=== PATIENT | male | born 1965 | race Caucasian/White ===

== ENCOUNTER 2017-07-26 12:11 | Emergency (ER) | payer OTHER ==
[2017-07-26 12:18] VITALS: RESP 18
[2017-07-26] MEDS ORDERED: Lidocaine 2% Inj (20ml) INFIL ONE (12:57)
[2017-07-26] MEDS ORDERED: Lidocaine 2% Inj (20ml) ONE (13:05)
[2017-07-26] MEDS ORDERED: Morphine 4 MG/ML VIAL ONE ×2 (13:21→14:32)
--- NOTE | 2017-07-26 13:34 | C.PDOC ---
History Of Present Illness 52 year old male with no significant PMHx presents to the ED accompanied by coworker for evaluation of laceration to his left index finger and thumb. Patient reports that while at work he was using a paper box cutter when he suffered the injury. While in the ED patient's hands was placed on saline solution. Patient denies dizziness, nausea, vomit, weakness, numbness. Time Seen by Provider: 07/26/17 12:54 Chief Complaint (Nursing): Finger,Hand,&Wrist History Per: Patient History/Exam Limitations: no limitations Onset/Duration Of Symptoms: Hrs Current Symptoms Are (Timing): Still Present Quality: "Pain" Severity: Moderate Exacerbating Factor(s): Movement Recent travel outside of the [place]: No Additional History Per: Patient Past Medical History Reviewed: Historical Data, Nursing Documentation, Vital Signs Vital Signs: Last Vital Signs Temp 98.2 F 07/26/17 15:41 Pulse 68 07/26/17 15:41 Resp 18 07/26/17 15:41 BP 135/82 07/26/17 15:41 Pulse Ox 98 07/26/17 15:41 - Medical History PMH: No Chronic Diseases Surgical History: No Surg Hx - [facility] Procedures INJECT/INFUSE NEC (07/20/14) Family History: States: Unknown Family Hx - Social History Hx Alcohol Use: No Hx Substance Use: No - Immunization History Hx Tetanus Toxoid Vaccination: Yes Hx Influenza Vaccination: No Hx Pneumococcal Vaccination: No Review Of Systems Constitutional: Negative for: Fever, Chills Cardiovascular: Negative for: Chest Pain Respiratory: Negative for: Shortness of Breath Gastrointestinal: Negative for: Nausea, Abdominal Pain Musculoskeletal: Positive for: Hand Pain Skin: Positive for: Other (Laceration). Negative for: Rash Neurological: Negative for: Weakness, Numbness, Headache, Dizziness Physical Exam - Physical Exam Appears: Non-toxic, No Acute Distress Skin: Normal Color, Warm, Dry, Other (avulsion to left thumb and left index finger) Head: Atraumatic, Normacephalic Eye(s): bilateral: Normal Inspection Nose: No Discharge Oral Mucosa: Moist Neck: Normal ROM, Supple Chest: Symmetrical Cardiovascular: Rhythm Regular, No Murmur Extremity: Normal ROM, No Tenderness, Capillary Refill (< 2 seconds), No Swelling, Other (left thumb avulsion to medial aspect extending to half of the nailbed. Avulsion went down to the bone. Left index finger avulsion to left distal aspect which also went down to the bone.) Pulses: Left Radial: Normal, Right Radial: Normal Neurological/Psych: Oriented x3, Normal Speech, Normal Motor, Normal Sensation Gait: Steady ED Course And Treatment O2 Sat by Pulse Oximetry: 100 (ON RA) Pulse Ox Interpretation: Normal Laceration - Laceration Repair No standard instances Wound Length (In cm): 3.5 Description Of Wound: Linear Wound Cleansed With: Betadine, Sterile Saline Anesthesia: Lidocaine 2% Wound Examination: Irrigated With Saline, No FB With Wound Exploration, No Tendon Injury With Wound Exploration Wound Debridement/Revision: Wound Debrided Wound Closure: Suture (x12) Suture Technique And Material Used: Nylon (3-o and 4-o) Wound Complexity: Simple Medical Decision Making Medical Decision Making: Impression: left thumb and index finger avulsion Plan: * Ancef 1,000 mg IVPB * Lidocaine 2% * Morphine 6 mg IM * Morphine 4 mg IVP Index finger was washed with saline and betadine. Index finger avulsion removed part of the tissue, so xeroform gauze was placed in it with no suture. Thumb avulsion was cleaned, carefully closed and joined back again with the nail. Avulsion was sutured with 3-o and 4-o nylon and 12 stitches were done. Length of the wound was 3.5 cm. Disposition Counseled Patient/Family Regarding: Diagnosis, Need For Followup, Rx Given - Disposition Referrals: [facility] at [facility] [Outside] Disposition: HOME/ ROUTINE Disposition Time: 15:25 Condition: STABLE Additional Instructions: Regrese a la viraj de emergencia el avinash jueves . regrese enseguida si se ve rojp o inflamado el brazo. Prescriptions: Cephalexin [cephalexin] 500 mg PO QID #40 cap Forms: [facility] (Russian), Work Excuse - POA Present On Arrival: None - Clinical Impression Clinical Impression: Laceration of left index finger with damage to nail - Scribe Statement The provider has reviewed the documentation as recorded by the Scribe Tyler Phipps All medical record entries made by the Scribe were at my direction and personally dictated by me. I have reviewed the chart and agree that the record accurately reflects my personal performance of the history, physical exam, medical decision making, and the department course for this patient. I have also personally directed, reviewed, and agree with the discharge instructions and disposition.
[2017-07-26] MEDS ORDERED: ceFAZolin 1 gm FROZEN Premix 1 GM/50 ML ML IVPB ONE (14:32)
[2017-07-26 15:42] VITALS: BP 135/82; PULSE 68; TEMP 98.2
[2017-07-26 15:53] VITALS: O2SAT 100
== END 2017-07-26 15:40 | disposition home or self-care (01) ==
LOC: C.ER 12:11
DX: S61.211A Laceration without foreign body of left index finger without damage to nail, initial encounter (principal); S61.112A Laceration without foreign body of left thumb with damage to nail, initial encounter; W45.8XXA Other foreign body or object entering through skin, initial encounter; Y92.89 Other specified places as the place of occurrence of the external cause; Y99.0 Civilian activity done for income or pay
CPT/HCPCS: 12002; 96365; 96375; 99284; J0690; J2270

== ENCOUNTER 2017-07-29 09:54 | Emergency (ER) | payer OTHER, SELFPAY ==
[2017-07-29 10:08] VITALS: BP 126/84; PULSE 84; RESP 20; TEMP 98.3; O2SAT 98
--- NOTE | 2017-07-29 11:07 | C.PDOC ---
History Of Present Illness 52 y/o male presents to the ER for a wound check to the left thumb and left index finger. Patient states that he cut his fingers with a box stapler while he was at work and he was seen in the ER on 07/26/17. He had an avulsion to the left thumb with Xeroform gauze placed. He also had an avulsion to the pulp of the left index finger which was sutured with 3-0 and 4-0 Nylon. Patient notes that he has pain in the site of the wound. Patient denies having fever,chills, and other complaints. Time Seen by Provider: 07/29/17 10:48 Chief Complaint (Nursing): Wound Check History Per: Patient History/Exam Limitations: no limitations Past Medical History Reviewed: Historical Data, Nursing Documentation, Vital Signs Vital Signs: Last Vital Signs Temp 98.3 F 07/29/17 10:06 Pulse 84 07/29/17 10:06 Resp 20 07/29/17 10:06 BP 126/84 07/29/17 10:06 Pulse Ox 98 07/29/17 16:03 - Medical History PMH: No Chronic Diseases Other Surgeries: Hx of surgeries - [employer] Procedures INJECT/INFUSE NEC (07/20/14) Family History: States: No Known Family Hx - Social History Hx Alcohol Use: Yes Hx Substance Use: No - Immunization History Hx Tetanus Toxoid Vaccination: Yes Hx Influenza Vaccination: No Hx Pneumococcal Vaccination: No Review Of Systems Except As Marked, All Systems Reviewed And Found Negative. Constitutional: Negative for: Fever, Chills Musculoskeletal: Positive for: Hand Pain (left thumb and left index finger) Physical Exam - Physical Exam Appears: Non-toxic, No Acute Distress Skin: Normal Color, Warm, Other (healing wound with sutures to left thumb, open avulsion to left index finger) Head: Atraumatic, Normacephalic Eye(s): bilateral: Normal Inspection Nose: Normal Oral Mucosa: Moist Neck: Supple Chest: Symmetrical Neurological/Psych: Oriented x3, Normal Speech ED Course And Treatment O2 Sat by Pulse Oximetry: 98 (RA) Pulse Ox Interpretation: Normal Medical Decision Making Medical Decision Making: Patient has a healing wound to the left thumb with an open avulsion to the index area. Patient has been discharged and told to return to ER in 4 days. Disposition Counseled Patient/Family Regarding: Diagnosis - Disposition Referrals: [facility] at [facility] [Outside] Disposition: HOME/ ROUTINE Disposition Time: 11:05 Condition: STABLE Additional Instructions: Mantenga los dedos limpios y seco. Regrese el avinash lunes pare evaluar la herida. Instructions: Wound Care (DC) Forms: Gen Discharge Inst Syrian, [facility] (Syrian), Work Excuse - POA Present On Arrival: None - Clinical Impression Clinical Impression: Visit for wound care - Scribe Statement The provider has reviewed the documentation as recorded by the Quintonibe Yara Sheikh Provider Attestation: All medical record entries made by the Scribe were at my direction and personally dictated by me. I have reviewed the chart and agree that the record accurately reflects my personal performance of the history, physical exam, medical decision making, and the department course for this patient. I have also personally directed, reviewed, and agree with the discharge instructions and disposition.
== END 2017-07-29 11:12 | disposition home or self-care (01) ==
LOC: C.ER 09:54
DX: Z51.89 Encounter for other specified aftercare (principal)

== ENCOUNTER 2017-08-02 09:56 | Emergency (ER) | payer OTHER ==
[2017-08-02 10:08] VITALS: BMI 26.6
[2017-08-02 10:09] VITALS: RESP 18
--- NOTE | 2017-08-02 11:57 | C.PDOC ---
History Of Present Illness <Blossom Nolasco - Last Filed: 08/02/17 11:56> <Siobhan Mahoney DO - Last Filed: 08/02/17 13:19> Patient is a 52 year old male who presents to the ED for wound check. 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 Lacerations were repaired on 07/26/17 and patient returned to the ED on 07/29/17 for wound check. Patient was instructed at that time to return to the ED in 4 days for repeat wound check. Patient denies bleeding of wounds or pain at home. Patient denies purulent discharge. Patient denies fever or chills. Patient states he is taking the antibiotic prescribed on initial ED visit. (Siobhan Mahoney DO) <Blossom Nolasco - Last Filed: 08/02/17 11:56> History Per: Patient History/Exam Limitations: no limitations Onset/Duration Of Symptoms: Days Ago, Laceration Current Symptoms Are (Timing): Better Location Of Injury: Left: Hand Quality Of Symptoms: denies: Painful, Swollen, Draining Severity: Mild Pain Scale Rating Of: 1 Additional History Per: Prior Records <Siobhan Mahoney DO - Last Filed: 08/02/17 13:19> Time Seen by Provider: 08/02/17 11:06 Chief Complaint (Nursing): Wound Check Past Medical History Family History: States: Unknown Family Hx - Social History Hx Alcohol Use: Yes Hx Substance Use: No - Immunization History Hx Tetanus Toxoid Vaccination: Yes Hx Influenza Vaccination: No Hx Pneumococcal Vaccination: No <Blossom Nolasco - Last Filed: 08/02/17 11:56> Vital Signs: Last Vital Signs Temp 98.4 F 08/02/17 12:01 Pulse 84 08/02/17 12:01 Resp 18 08/02/17 12:01 BP 146/82 08/02/17 12:01 Pulse Ox 98 08/02/17 12:01 - [facility] Procedures INJECT/INFUSE NEC (07/20/14) Review Of Systems Constitutional: Negative for: Fever, Chills Eyes: Negative for: Pain ENT: Negative for: Ear Pain Cardiovascular: Negative for: Chest Pain Respiratory: Negative for: Cough Gastrointestinal: Negative for: Nausea, Vomiting Genitourinary: Negative for: Dysuria Skin: Positive for: Other (denies discharge from wound) Neurological: Negative for: Weakness, Dizziness <Siobhan Mahoney DO - Last Filed: 08/02/17 13:19> Physical Exam - Physical Exam Appears: Well, Non-toxic, No Acute Distress Skin: Warm, Dry, Other (left thumb with sutures intact, no bleeding, no purulence noted. left index finger non purulent, nontender on palpation) Eye(s): bilateral: EOMI Neck: Normal ROM Chest: Symmetrical Cardiovascular: Rhythm Regular Respiratory: Normal Breath Sounds Gastrointestinal/Abdominal: Bowel Sounds, Soft, No Tenderness Extremity: No Tenderness Neurological/Psych: Oriented x3, Normal Speech <Siobhan Mahoney DO - Last Filed: 08/02/17 13:19> ED Course And Treatment O2 Sat by Pulse Oximetry: 97 <Blossom Nolasco - Last Filed: 08/02/17 11:56> Progress Note: Wounds irrigated with sterile saline and cleansed with betadine. Bacitracin applied and wounds covered with clean gauze. Patient instructed to return to ED in 3 days for wound check. <Siobhan Mahoney DO - Last Filed: 08/02/17 13:19> Disposition Counseled Patient/Family Regarding: Studies Performed, Diagnosis, Need For Followup - Disposition Disposition Time: 12:00 <Blossom Nloasco - Last Filed: 08/02/17 11:56> Counseled Patient/Family Regarding: Need For Followup <Siobhan Mahoney DO - Last Filed: 08/02/17 13:19> - Disposition Referrals: [facility] at [facility] [Outside] Disposition: HOME/ ROUTINE Condition: STABLE Additional Instructions: RETURN TO EMERGENCY ROOM IN 3 DAYS FOR WOUND CHECK CONTINUE YOUR ANTIBIOTICS RETURN TO EMERGENCY ROOM SOONER IF YOU HAVE ANY CONCERNING SYMPTOMS VUELVA A LA LA DE EMERGENCIAS EN 3 WINTERS PARA CHEQUEO DE HERIDAS CONTINUE CON LAISHA ANTIBITICOS REGRESE AL CUARTO DE URGENCIAS MS PRONTO SI TIENE ALGN SNTOMA CONCRETO Instructions: Wound Care (DC) Forms: [employer] (Sri Lankan) Print Language: DANISH - Clinical Impression Clinical Impression: Visit for wound check - 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 / has examined the patient and agrees with the treatment plan. <Siobhan Mahoney DO - Last Filed: 08/02/17 13:19>
[2017-08-02 12:03] VITALS: BP 146/82; PULSE 84; TEMP 98.4; O2SAT 98
== END 2017-08-02 12:35 | disposition home or self-care (01) ==
LOC: C.ER 09:56
DX: Z48.00 Encounter for change or removal of nonsurgical wound dressing (principal)

== ENCOUNTER 2017-08-05 09:54 | Emergency (ER) | payer OTHER ==
[2017-08-05 09:54] VITALS: BMI 26.6
[2017-08-05 10:00] VITALS: BP 127/85; PULSE 94; RESP 17; TEMP 98.1; O2SAT 97
--- NOTE | 2017-08-05 10:23 | C.PDOC ---
History Of Present Illness 52 y/o male presents to the ER for a wound check to the left thumb and left index finger. 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 He also had an avulsion to the pulp of the left index finger which was sutured with 3-0 and 4-0 Nylon but at present time appears open, no sutures, healing well. Patient denies having fever,chills, worsening pain, wound discharges, redness, weakness, sensory or vascular deficits to injured finger. Time Seen by Provider: 08/05/17 10:12 Chief Complaint (Nursing): Wound Check Past Medical History Vital Signs: Last Vital Signs Temp 98.1 F 08/05/17 09:58 Pulse 94 H 08/05/17 09:58 Resp 17 08/05/17 09:58 BP 127/85 08/05/17 09:58 Pulse Ox 97 08/05/17 11:13 - [facility] Procedures INJECT/INFUSE NEC (07/20/14) Family History: States: Unknown Family Hx - Social History Hx Alcohol Use: Yes Hx Substance Use: No - Immunization History Hx Tetanus Toxoid Vaccination: Yes (2014) Hx Influenza Vaccination: No Hx Pneumococcal Vaccination: No Physical Exam - Physical Exam Appears: Well, Non-toxic, No Acute Distress Skin: Normal Color, Warm, No Rash, Other (Left index finger: distal aspect small open wound healing well over finger pulp, no discharges, no edema, no cellulitis or proximal streaking.) Extremity: Normal ROM (Left thumb), No Tenderness, Capillary Refill (less than 2sec to Left thumb), No Deformity, No Swelling, Other (well healed laceration over distal left 1st phalanx clozed with sutures #12. No edema, no erythema, no wound draining, no cellulitis.) Neurological/Psych: Oriented x3, Normal Speech, Normal Motor, Normal Sensation, Normal Reflexes ED Course And Treatment O2 Sat by Pulse Oximetry: 97 Pulse Ox Interpretation: Normal Progress Note: On re-eval, pt is afebrile, hemodynamicaly stable. Non-toxic. Left hand: wound cleaned over the thumb, sutures removed with mild difficulty. No edema, no erythema, no wound draining, no cellulitis. [place] gutierrez applied to small opening on wound, closed with steri-strips. FAROM of Left thumb, no neurovascular deficits. Pt advised on wound care. ref. to f/u with PMD as need for further eval and tx now. Disposition Counseled Patient/Family Regarding: Diagnosis, Need For Followup - Disposition Referrals: [facility] at [facility] [Outside] Disposition: HOME/ ROUTINE Disposition Time: 10:26 Condition: STABLE Additional Instructions: Keep wound clean, dry for 2-3 days Light duty to Left thumb Follow up with PMD as need for further evaluation and treatment Instructions: Stitches Removal Forms: [employer] (Grenadian) Print Language: YAKUT - Clinical Impression Clinical Impression: Visit for wound check, Visit for suture removal
== END 2017-08-05 11:14 | disposition home or self-care (01) ==
LOC: C.ER 09:54
DX: Z48.02 Encounter for removal of sutures (principal); Z51.89 Encounter for other specified aftercare